=== PATIENT | female | born 1960 | race Caucasian/White ===

== ENCOUNTER 2016-06-24 08:06 | Day surgery (SDC) | payer OTHER ==
[~2016-06-24] VITALS: Ht 157.5 cm; Wt 79.7 kg
[2016-06-24 09:17] VITALS: Ht 157.5 cm; Wt 79.7 kg
[2016-06-24] MEDS ORDERED: SUCR1TAB56 PO (09:20)
[2016-06-24] MEDS ORDERED: MISO200T3 PO (09:21)
[2016-06-24] MEDS ORDERED: PRAV20TA63 PO (09:26)
[2016-06-24] MEDS ORDERED: GABA100C14 PO (09:26)
[2016-06-24] MEDS ORDERED: METH750T2 PO (09:26)
[2016-06-24] MEDS ORDERED: MELO-109 PO (09:26)
[2016-06-24] MEDS ORDERED: DULO20CA17 PO (09:26)
[2016-06-24] MEDS ORDERED: ALBU18HF INHALATION (09:26)
[2016-06-24] MEDS ORDERED: LIDOCAINE 2% (SDV) 5 ML INJ ONE (10:00)
[2016-06-24] MEDS ORDERED: LIDOCAINE 4% SOLUTION 50 ML BTL ONE (10:01)
[2016-06-24 11:05] VITALS: BP 119/87; PULSE 59; RESP 18
[2016-06-24] MEDS ORDERED: FENTAnyl 50 MCG/ML VIAL ONE ×2 (11:10)
[2016-06-24] MEDS ORDERED: MIDAZOLAM 1 MG/ML 2 ML INJ ONE ×3 (11:11)
[2016-06-24 11:18] VITALS: BP 126/68; PULSE 62; RESP 18
--- NOTE | 2016-06-25 05:11 | GILP ---
DATE OF PROCEDURE: 06/24/2016 PROCEDURE: Colonoscopy. PREOPERATIVE DIAGNOSIS: Patient presenting with history of no significant gastrointestinal problems . This is a screening colonoscopy to rule out colon polyps. POSTOPERATIVE DIAGNOSES: 1. A 4 mm polyp noted in the proximal transverse colon removed with a cold biopsy forceps. 2. A 1 cm submucosal mass noted in the proximal ascending colon consistent with a lipoma. Biopsy w as done. DESCRIPTION OF PROCEDURE: After the informed written consent was obtained, the patient was asked to lie on the left lateral side. A total of 6 mg Versed and 125 mcg of fentanyl was given as intraveno us anesthesia. When the patient became somnolent, the Olympus video colonoscope was introduced into the rectum and scope was advanced all the way to the cecum. There is evidence of a 4 mm flat polyp noted in the pr oximal transverse colon. This was removed with help of a cold biopsy forceps. There was about 1 cm submucosal mass noted in the proximal ascending colon. This is consistent with a lipoma. Biopsy w as done. The rest of the colon was examined thoroughly. Occasional diverticula were noted scattere d along the colon. They were small in size and not bleeding. On the way out, retroflexion was performed. Minimal internal hemorrhoids were noted and the rest of the colon as I mentioned earlier, did not show any additional abnormalities and at this time, proc edure was terminated. PLAN: Recommend wait for the pathology report. Repeat colonoscopy in 5 years. Dictated By: PATI LOZANO/DUNIA Conf#: [id number] DID#: [id number] CC: Yamileth Ma;*End*
--- NOTE | 2016-06-25 13:26 | GILP ---
DATE OF PROCEDURE: 06/24/2016 PROCEDURE: Esophagogastroduodenoscopy. PREOPERATIVE DIAGNOSIS: Patient presenting with history of chronic abdominal pain unresponsive to r outine therapy. Rule out peptic ulcer disease, gastritis, gastroesophageal reflux disease. POSTOPERATIVE DIAGNOSES: 1. Diffuse moderate degree of gastritis. 2. Nodularity and thickening of the folds in the gastric fundus noted. Biopsies were done. DESCRIPTION OF PROCEDURE: After informed written consent was obtained, the patient was asked to lie on the left lateral side. Intravenous anesthesia was given, which included 3 mg Versed and 50 mcg of fentanyl. When the patient became somnolent, the Olympus video upper endoscope was introduced in to the oropharynx, then into the esophagus. Esophagus showed normal mucosal pattern with no ulcers, no neoplasm, no esophagitis. Scope at this time was advanced into the stomach. Stomach showed dif fuse erythema and friability and edema. Some of the folds in the gastric fundus showed evidence of nodularity and thickening. Multiple biopsies were obtained from the antrum and the lesser curvature to rule out H. pylori infection. Biopsies were also obtained from the gastric thickening of the th ickened folds. Duodenum was examined up to the end of the third portion, which appeared normal. En doscope at this time was withdrawn, and no additional abnormalities detected, and the procedure was terminated. PLAN: Recommend proton pump inhibitor therapy. Dictated By: PATI LOZANO/DUNIA Conf#: [id number] DID#: [id number] CC: PATI SINGLETARY MD;*EndCC*
== END 2016-06-24 12:05 | disposition home or self-care (01) ==
LOC: GIL 08:06
PROVIDERS: ATTEND Internal Medicine Gastroenterology
DX: Z12.11 Encounter for screening for malignant neoplasm of colon (principal); D12.2 Benign neoplasm of ascending colon; K29.30 Chronic superficial gastritis without bleeding; D12.3 Benign neoplasm of transverse colon
CPT/HCPCS: 43239; 45380; J2250; J3010; Z7610; 88305; 88312

== ENCOUNTER 2017-04-24 06:31 | Day surgery (SDC) | payer MEDICARE, OTHER ==
[~2017-04-24] VITALS: Ht 157.5 cm; Wt 78.1 kg
[2017-04-24] VITALS (13 sets, daily range): BP systolic 114–158; BP diastolic 56–100; PULSE 60–92; RESP 13–22; Ht 157.5 cm; Wt 78.1 kg
[~2017-04-24 06:31] MED LIST: ALBU18HF INHALATION; DULO20CA17 PO; GABA100C14 PO; MELO-216 PO; METH750T2 PO; MISO200T3 PO; PRAV20TA63 PO; SUCR1TAB56 PO
[2017-04-24] MEDS ORDERED: DIPHENHYDRAMINE 50 MG INJ IV PRN (07:00)
[2017-04-24] MEDS ORDERED: FENTAnyl 50 MCG/ML VIAL IV PRN ×2 (07:00)
[2017-04-24] MEDS ORDERED: MEPERIDINE 25 MG INJ IV PRN (07:00)
[2017-04-24] MEDS ORDERED: ATROPINE 1 MG/10 ML SYRINGE IV PRN (07:00)
[2017-04-24] MEDS ORDERED: HYDROmorphONE (0.2 MG/ML) 10ML SYG IV PRN ×3 (07:00)
[2017-04-24] MEDS ORDERED: EPHEDrine SULFATE 50 MG/5 ML SYG IV PRN (07:00)
[2017-04-24] MEDS ORDERED: MIDAZOLAM 1 MG/ML 2 ML INJ IV PRN (07:00)
[2017-04-24] MEDS ORDERED: hydrALAzine 20 MG INJ IV PRN (07:00)
[2017-04-24] MEDS ORDERED: OXYCODONE/ACETAMINOPHEN (5/325) TAB PO PRN ×2 (07:00)
[2017-04-24] MEDS ORDERED: morphine (1 MG/ML) 10ML SYRINGE IV PRN ×3 (07:00)
[2017-04-24] MEDS ORDERED: LABETALOL HCL 20MG INJ IV PRN (07:00)
[2017-04-24] MEDS ORDERED: ONDANSETRON 4 MG INJ IV PRN (07:00)
[2017-04-24] MEDS ORDERED: DEXAMETHASONE 4 MG/ML 1 ML INJ ONE (07:07)
[2017-04-24] MEDS ORDERED: LIDOCAINE 2% (SDV) 5 ML INJ ONE (07:07)
[2017-04-24] MEDS ORDERED: NEOSTIGMINE 3 MG/3 ML SYRINGE ONE (07:07)
[2017-04-24] MEDS ORDERED: FENTAnyl 50 MCG/ML VIAL ONE (07:07)
[2017-04-24] MEDS ORDERED: ROCURONIUM 50 MG INJ ONE (07:07)
[2017-04-24] MEDS ORDERED: MIDAZOLAM 1 MG/ML 2 ML INJ ONE (07:07)
[2017-04-24] MEDS ORDERED: PROPOFOL 20 ML ONE (07:07)
[2017-04-24] MEDS ORDERED: GLYCOPYRROLATE 0.4 MG INJ ONE (07:07)
[2017-04-24] MEDS ORDERED: ONDANSETRON 4 MG INJ ONE (07:08)
[2017-04-24] MEDS ORDERED: SUCCINYLCHOLINE CHLORIDE 100 MG/5 ML SYG IV ONE (07:14)
[2017-04-24] MEDS ORDERED: CALC-143 PO (08:09)
[2017-04-24] MEDS ORDERED: IOHEXOL 300MG/ML 30 ML BTL ONE (08:09)
[2017-04-24] MEDS ORDERED: LEVO50TA71 PO (08:10)
[2017-04-24] MEDS ORDERED: OMEP40CA6 PO (08:10)
[2017-04-24 08:36] LABS: BASOPHILS % 0.7 % (0.0-2.0); EOSINOPHILS # 0.1 10^3/ul (0.0-0.5); EOSINOPHILS % 1.5 % (0.0-7.0); HEMATOCRIT 41.5 % (37.0-47.0); HEMOGLOBIN 13.9 g/dl (12.0-16.0); LYMPHOCYTES # 1.8 10^3/ul (0.8-2.9); LYMPHOCYTES % 29.4 % (15.0-51.0); MEAN CORPUSCULAR HEMOGLOBIN 32.1 pg (29.0-33.0); MEAN CORPUSCULAR HGB CONC 33.5 g/dl (32.0-37.0); MEAN CORPUSCULAR VOLUME 95.8 fl (82.0-101.0); MEAN PLATELET VOLUME 10.9 fl (7.4-10.4); MONOCYTE # 0.4 10^3/ul (0.3-0.9); MONOCYTES % 6.9 % (0.0-11.0); NEUTROPHIL # 3.8 10^3/ul (1.6-7.5); NEUTROPHILS % 61.2 % (39.0-77.0); PLATELET COUNT 260 10^3/UL (140-415); RED BLOOD COUNT 4.33 10^6/ul (4.20-5.40); RED CELL DISTRIBUTION WIDTH 11.9 % (11.5-14.5); WHITE BLOOD COUNT 6.1 10^3/ul (4.8-10.8)
[2017-04-24 08:47] LABS: ALBUMIN 4.2 g/dl (3.3-4.9); ALBUMIN/GLOBULIN RATIO 1.23; BILIRUBIN,INDIRECT 0.5 mg/dl (0-1.1); BILIRUBIN,TOTAL 0.5 mg/dl (0.2-1.3); INR 0.92; PROTIME 12.4 Sec (12.2-14.2); TOTAL PROTEIN 7.6 g/dl (6.1-8.1)
[2017-04-24 08:48] LABS: PARTIAL THROMBOPLASTIN TIME 29.7 Sec (25.0-35.0)
[2017-04-24 08:59] LABS: CALCIUM 9.4 mg/dl (8.4-10.2); CREATININE 0.68 mg/dl (0.44-1.00); POTASSIUM 3.4 mmol/L (3.5-5.1)
--- NOTE | 2017-04-24 09:40 | OPR ---
Date/Time of Note Date/Time of Note DATE: 04/24/17 TIME: 09:34 Operative Report Procedure Date: Apr 24, 2017 Preoperative Diagnosis ruq pain abn lfts s/p cholecustectomy r/o cbd stones Postoperative Diagnosis dilated cbd normal leigh duct s/p cholecystectomy Operation/Procedure Performed ercp Surgeon see signature line Baseball Glove Stuffer none Anesthesia Type: general Anesthesiologist: RADHA ZIMMERMAN MD Estimated Blood Loss: none Transfusion none Specimen none Grafts/Implants none Tubes/Drains none Complications none Pt Condition Post Procedure: stable Indications cbd stones Procedure Description ercp performed under general anesthesia\ dilatedc cbd stone s/p cholecystectomy normal leigh duct PATI SINGLETARY MD Apr 24, 2017 09:40
--- NOTE | 2017-04-24 12:12 | RADRPT ---
PROCEDURE: Intraoperative imaging for ERCP with fluoroscopy. CLINICAL INDICATION: Right upper quadrant pain. Intraoperative. TECHNIQUE: 12 images of the right upper quadrant of the abdomen were obtained in the operating johnathan m with an image intensifier. No radiologist was in attendance. Fluoroscopy time is 127 seconds. COMPARISON: No prior study is available for comparison. FINDINGS: Images demonstrate the endoscope in position and contrast injected into the common bile duct. A ball oon sweep was made. Contrast was also injected into the pancreatic duct. There is no filling defect. IMPRESSION: 1. ERCP as described above. RPTAT: QQ .Codey Figueroa MD, Date Time Electronically viewed and signed by .Codey Figueroa MD, on 04/24/2017 12:12 .R/
--- NOTE | 2017-04-25 02:36 | GILP ---
DATE OF PROCEDURE: PROCEDURE: ERCP. PREOPERATIVE DIAGNOSIS: Patient presenting with history of right upper quadrant pain which is persi stent. The patient had a cholecystectomy. Patient had abnormal liver functions. Procedure is perf ormed at this time to rule out choledocholithiasis. POSTOPERATIVE DIAGNOSES: 1. Dilated common bile duct and status post cholecystectomy. 2. Normal pancreatic duct. DESCRIPTION OF PROCEDURE: After the informed written consent was obtained, the patient was intubate d by anesthesiologist, Dr. Hicks. When the patient was in prone position, Olympus video side-viewi ng duodenoscope was inserted into the oropharynx, then into the esophagus, subsequently into the sto mach and then into the duodenum. The ampulla was located in normal location with normal morphology. At this time, cannulation was first performed by using the Dreamtome. Common bile duct was dilate d and no filling defects were noted; however, at this time, balloon was inserted into the common hep atic duct, balloon sweeping was performed, no sludge, no stones were noted. Subsequently, by using the Dreamtome, the pancreatic duct was cannulated, injection was made and pancreatic duct appe ared normal. Endoscope at this time was withdrawn, no additional abnormalities detected and the pro cedure was terminated. PLAN: Recommend follow the patient closely and further workup to be continued. Dictated By: PATI LOZANO/DUNIA Conf#: [id number] DID#: [id number]
--- NOTE | 2017-04-25 21:45 | RADRPT ---
Vent Rate: 70 bpm RR Interval: 0 msec UT Interval: 142 msec QRS Duration: 96 msec QT Interval: 432 msec QTC Interval: 466 msec P-R-T [place]: 49 - 11 - 21 degrees Normal sinus rhythm Normal ECG Electronically Signed By: Frantz Conde [id number]
== END 2017-04-24 11:29 | disposition home or self-care (01) ==
LOC: SDS 06:31 → GIL 06:31
PROVIDERS: ATTEND Internal Medicine Gastroenterology
DX: R10.11 Right upper quadrant pain (principal); E03.9 Hypothyroidism, unspecified
CPT/HCPCS: 43260; 74330; 80053; 85025; 85610; 85730; 93005; J1100; J2250; J2405; J2710; J3010; Q9967

== ENCOUNTER 2018-12-10 07:55 | Observation (INO) | payer OTHER ==
[2018-12-07 16:06] VITALS: BMI 32.2
[~2018-12-10] VITALS: Ht 157.5 cm; Wt 78.1 kg
[2018-12-10] VITALS (16 sets, daily range): BP systolic 114–140; BP diastolic 57–74; PULSE 64–78; RESP 14–20; Ht 157.5 cm; Wt 78.1 kg
[~2018-12-10 07:55] MED LIST changes: +CALC-143 PO; -DULO20CA17 PO; -GABA100C14 PO; +LEVO50TA71 PO; -MELO-216 PO; -METH750T2 PO; +OMEP40CA6 PO; -PRAV20TA63 PO
[2018-12-10] MEDS ORDERED: PRAV40TA76 PO (09:07)
[2018-12-10] MEDS ORDERED: OXYB5TAB22 PO (09:08)
[2018-12-10] MEDS ORDERED: LEVO75TA65 PO (09:08)
[2018-12-10] MEDS ORDERED: SUCR1TAB56 PO (09:08)
[2018-12-10] MEDS ORDERED: OMEP40CA6 PO (09:09)
[2018-12-10] MEDS ORDERED: BACL10TA PO (09:09)
[2018-12-10] MEDS ORDERED: SULI200T3 PO (09:10)
[2018-12-10] MEDS ORDERED: DULO60CA59 PO (09:10)
[2018-12-10] MEDS ORDERED: CLINDAMYCIN 900 MG/D5W (PMX) 50 ML IVPB ONE (09:30)
[2018-12-10] MEDS ORDERED: SOD CHLORIDE 0.9% 1,000 ML IV ONE (09:30)
[2018-12-10] MEDS ORDERED: POLYMYXIN/BACITRACIN 1L IRRIG ONE (12:23)
[2018-12-10] MEDS ORDERED: BUPIVACAINE 0.25% (MPF) 30 ML INJ ONE (12:23)
--- NOTE | 2018-12-10 12:35 | PREAC ---
Date/Time of Note Date/Time of Note DATE: 12/10/18 TIME: 12:34 Anesthesia Eval and Record Evaluation Time Pre-Procedure Interview DATE: 12/10/18 TIME: 12:34 Age 58 Sex female NPO: 8 hrs Preoperative diagnosis ventral hernia Planned procedure ventral hernia repair Past Medical History Past Medical History: Includes Cardio: Dyslipidemia Endo: Hypothyroid Musculoskeletal: Other (fibromyalgia) Surgery & Anesthesia Issues No known issue Meds Anticoagulation: No Beta Jayshree within 24 hr: No Reason Beta Jayshree not given: Pt. not on B-Jayshree Reported Medications Sulindac* (Clinoril*) 200 Mg Tablet, 200 MG PO BID, TAB 12/10/18 Duloxetine Hcl* (Duloxetine Hcl*) 60 Mg Capsule.dr, 60 MG PO BID, #30 CAP 12/10/18 Baclofen* (Baclofen*) 10 Mg Tablet, 10 MG PO TID, TAB 12/10/18 Omeprazole* (Omeprazole*) 40 Mg Capsule.dr, 40 MG PO DAILY, #30 CAP 12/10/18 Sucralfate* (Carafate*) 1 Gm Tab, 1 GM PO AC MEALS AND BEDTIME, TAB 12/10/18 Levothyroxine Sodium* (Levoxyl*) 75 Mcg Tablet, 75 MCG PO BEFORE BREAKFAST, #30 TAB 12/10/18 Oxybutynin Chloride* (Ditropan* XL) 5 Mg Tabsr, 5 MG PO DAILY, TAB.SA 12/10/18 Pravastatin Sodium* (Pravastatin Sodium*) 40 Mg Tablet, 40 MG PO HS, TAB 12/10/18 Discontinued Reported Medications Omeprazole* (Omeprazole*) 40 Mg Capsule.dr, 40 MG PO DAILY, #30 CAP 04/24/17 Levothyroxine Sodium* (Levoxyl*) 50 Mcg Tablet, 50 MCG PO BEFORE BREAKFAST, #30 TAB 04/24/17 Calcium Citrate/Vitamin D (Citracal-Vitamin D 200 MG-250) 1 Each Tablet, 1 EACH PO BID, TAB 04/24/17 Albuterol Sulfate* (Ventolin HFA*) 18 Gm Hfa.aer.ad, 2 PUFF INHALATION Q4H, #1 INHALER 06/24/16 Misoprostol (Misoprostol) 200 Mcg Tablet, 200 MCG PO, TAB 06/24/16 Sucralfate* (Carafate*) 1 Gm Tab, 1 GM PO AC MEALS AND BEDTIME, TAB 06/24/16 Current Medications Sodium Chloride 1,000 ml @ 75 mls/hr [id number] ONCE IV Last administered on 12/10/18at 08:54; Admin Dose 75 MLS/HR; Start 12/10/18 at 09:30; Stop 12/10/18 at 22:49 Meds reviewed: Yes Allergies Coded Allergies: Penicillins (Verified Allergy, Mild, rash, 12/10/18) Allergies Reviewed: Yes Labs/Studies Labs Reviewed: Reviewed by anesthesiologist test: N/A Studies: ECG, CXR Pre-procedure Exam Last vitals Vital Signs Date Temp Pulse Resp B/P (MAP) Pulse Ox O2 O2 Flow FiO2 Time Delivery Rate 12/10/18 98.2 73 16 131/68 100 09:03 (89) Airway: Adequate mouth opening, Adequate thyromental dist Mallampati: Mallampati I Teeth: Normal Lung: Normal Heart: Normal ASA Physical Status ASA physical status: 2 Emergency: None Planned Anesthetic General/MAC: ETT Planned Pain Management Parenteral pain med Pre-operative Attestations Prior to commencing anesthesia and surgery, the patient was re-evaluated, there was verification of: *The patient's identity *The results of appropriate recent lab work and preoperative vital signs *The above evaluation not changing prior to induction *Anesthetic plan, risk benefits, alternative and complications discussed with patient/family; questions answered; patient/family understands, accepts and wishes to proceed. KRISTIE LYNN Dec 10, 2018 12:35
[2018-12-10] MEDS ORDERED: PROPOFOL 20 ML ONE (12:59)
[2018-12-10] MEDS ORDERED: ROCURONIUM 50 MG INJ ONE (12:59)
[2018-12-10] MEDS ORDERED: LIDOCAINE 2% (SDV) 5 ML INJ ONE (12:59)
[2018-12-10] MEDS ORDERED: ONDANSETRON 4 MG INJ ONE (13:25)
[2018-12-10] MEDS ORDERED: DEXAMETHASONE 4 MG/ML 5 ML INJ ONE (13:25)
[2018-12-10] MEDS ORDERED: SUGAMMADEX SODIUM 200 MG/2 ML VIAL IV ONE (13:37)
--- NOTE | 2018-12-10 13:45 | OPR ---
Date/Time of Note Date/Time of Note DATE: 12/10/18 TIME: 13:40 Operative Report Procedure Date: Dec 10, 2018 Preoperative Diagnosis incarcerated incisional hernia Postoperative Diagnosis same Operation/Procedure Performed 1. laparoscopic incarcerated incisional hernia repair cpt code 26514 2. implantation of 15 x 15 cm bard soft mesh cpt code 54023 3. therapetic injection of subcutaneous local anesthesia Surgeon see signature line Buyers' Agent none Anesthesia Type: general Estimated Blood Loss: 0 - 10 ml's Transfusion none Specimen none Grafts/Implants none Complications none Pt Condition Post Procedure: stable Indications This is a 58-year-old female with symptomatic incarcerated incisional hernia. She has had prior surgery with an incision. She required surgical repair of incisional incarcerated hernia. Risks alternatives benefits and personal were discussed the patient. Potential complications including but not limited to bleeding infection mesh infection mesh migration mesh erosion were discussed the patient. In addition the injury to surrounding tissues were discussed the patient. Patient expressed understanding consents to the operation. Procedure Description Patient is taken to the OR and prepped and draped in usual sterile fashion. Surgical timeout was performed. IV antibiotics given. Left upper quadrant 5 mm incision was made transversely with a 15 blade. Using a 5 mm optical trocar optical entry is performed. Pneumoperitoneum is status. Left flank 12 mm optical trochars placed under direct visualization. Left lower quadrant 5 mm optical trochars placed under direct visualization. Upon initial inspection incarcerated incisional hernia was identified. Using laparoscopic harmonic wendy lysis of adhesions was performed and the hernia was then reduced ma nually. The fascial edges were freshened and the defect was identified. The hernia defect was closed primarily using Endo Close and laparoscopic techniques with interrupted #1 Vicryl. After primary closure of the incisional hernia defect underlay mesh with Bard soft mesh was secured in place with secure strap with approximate 45 cm of coverage in all directions. Good hemostasis was ensured. All ports removed under direct visualization. Skin was closed and skin francisco. Therapeutic subcutaneous local anesthesia was injected at the incision site. Dry dressings were applied. Parth CULVER Dec 10, 2018 13:45
--- NOTE | 2018-12-10 13:51 | PAC ---
Date/Time of Note Date/Time of Note DATE: 12/10/18 TIME: 13:51 Post-Anesthesia Notes Post-Anesthesia Note Last documented vital signs Vital Signs Date Temp Pulse Resp B/P (MAP) Pulse Ox O2 O2 Flow FiO2 Time Delivery Rate 12/10/18 98.2 73 16 131/68 100 1351 (89) Activity: WNL Respiratory function: WNL Cardiovascular function: WNL Mental status: Baseline Pain reasonably controlled: Yes Hydration appropriate: Yes Nausea/Vomiting absent: Yes KRISTIE LYNN Dec 10, 2018 13:51
[2018-12-10] MEDS ORDERED: METOCLOPRAMIDE 10 MG INJ IV PRN (14:00)
[2018-12-10] MEDS ORDERED: hydrALAzine 20 MG INJ IV PRN (14:00)
[2018-12-10] MEDS ORDERED: HYDROmorphONE 1 MG/5 ML IV SYRINGE IV PRN ×3 (14:00)
[2018-12-10] MEDS ORDERED: OXYCODONE/ACETAMINOPHEN (5/325) TAB PO PRN ×2 (14:00)
[2018-12-10] MEDS ORDERED: LABETALOL HCL 20MG INJ IV PRN (14:00)
[2018-12-10] MEDS ORDERED: DIPHENHYDRAMINE 50 MG INJ IV PRN (14:00)
[2018-12-10] MEDS ORDERED: FENTAnyl 50 MCG/ML VIAL IV PRN ×3 (14:00)
[2018-12-10] MEDS ORDERED: ALBUTEROL 0.083% (NEB) 2.5 MG/3 ML AMP HHN PRN (14:00)
[2018-12-10] MEDS ORDERED: HYDROCODONE/APAP (5/325) TAB PO ONE (14:00)
[2018-12-10] MEDS ORDERED: MEPERIDINE 25 MG INJ IV PRN (14:00)
[2018-12-10] MEDS ORDERED: KETOROLAC 30 MG INJ IV PRN (14:00)
[2018-12-10] MEDS ORDERED: ONDANSETRON 4 MG INJ IV PRN (14:00)
[2018-12-10] MEDS ORDERED: ACETAMINOPHEN 325 MG TAB PO PRN (20:00)
[2018-12-10] MEDS: SOD CHLORIDE 0.45% 1,000 ML IV SCH (20:56)
[2018-12-10] MEDS: DULOXETINE 30 MG CAP DR PO SCH (20:56)
[2018-12-10] MEDS: ATORVASTATIN 10 MG TAB PO SCH (21:55)
[2018-12-10] MEDS: morphine 2 MG INJ IV PRN (21:59)
--- NOTE | 2018-12-10 22:44 | HP ---
DATE OF ADMISSION: 12/10/2018 CHIEF COMPLAINT AND HISTORY OF PRESENT ILLNESS: The patient is a 58-year-old female with history of hypothyroidism, hyperlipidemia, history of ventral hernia and history of open cholecystectomy. The p atient has chronic abdominal pain and was referred to Dr. Moore. The patient was diagnosed with incarc erated incisional hernia. The patient was brought into hospital and underwent laparoscopic incarcera yoli incisional hernia repair with mesh. The patient has significant postoperative pain and is being admitted for further evaluation and management. The patient denies history of headache, dizziness or syncope. No history of chest pain. No history of resting leg pain. No history of numbness or ting ling in any extremity. No history of focal weakness. No history of recent fever or chills. No hist ory of vomiting. REVIEW OF SYSTEMS: The rest of the systems were unremarkable. ALLERGIES: PENICILLIN. GYNECOLOGIC HISTORY: The patient is postmenopausal. FAMILY HISTORY: Father has hypertension. Mother is diabetic. SOCIAL HISTORY: No smoking, no alcohol. PAST SURGICAL HISTORY: The patient is status post cholecystectomy and hysterectomy. PHYSICAL EXAMINATION: GENERAL: Awake, alert. VITAL SIGNS: Temperature 97.9, pulse 72, respiration 18, blood pressure 137/63, O2 sat 92% to 100% o n room air. HEENT: No eye discharge or redness. Conjunctivae normal. Oropharynx clear. NECK: No mass. CHEST: Fairly clear. CARDIOVASCULAR: S1, S2 normal, no murmur. ABDOMEN: The patient is status post surgery. EXTREMITIES: No edema. NEUROLOGIC: The patient is awake, alert, fairly oriented with no gross focal deficit. LABORATORY DATA: Hemoglobin 13.9, WBC 6.2 and platelet 298. Calcium 9.8, creatinine 0.6, albumin 4. 4, ALT 38, AST 23, glucose 85, potassium 4.1 and sodium 141. PT, PTT within normal limits. IMPRESSION: 1. Incarcerated incisional hernia status post laparoscopic repair. 2. Hypothyroidism. 3. Dyslipidemia. PLAN: The patient admitted on medical floor. The patient started on clear liquid diet and will be s tarted on Tylenol, [place] and IV morphine for pain control. The patient also has history of chronic p ain syndrome for which apparently she is on Cymbalta, which will be continued. We will continue to m onitor. We will advance diet as tolerated. Plan of care discussed with the patient's family. Dictated By: HAJA LLOYD/DUNIA Conf#: [id number] DID#: [id number] CC: YANIRA MOORE MD;*EndCC*
[2018-12-11 02:05] VITALS: BP 102/59; PULSE 80; RESP 18
[2018-12-11] MEDS: SOD CHLORIDE 0.45% 1,000 ML IV SCH ×3 (03:34→15:51)
[2018-12-11] MEDS: LEVOTHYROXINE 75 MCG TAB PO SCH (06:13)
[2018-12-11] MEDS: PANTOPRAZOLE (EC) 40 MG TAB PO SCH (06:13)
[2018-12-11 07:21] VITALS: BP 91/44; PULSE 71; RESP 18
[2018-12-11] MEDS: OXYBUTYNIN (XL) 5 MG TAB PO SCH (08:03)
[2018-12-11] MEDS: HYDROCODONE/APAP (5/325) TAB PO PRN ×2 (08:03→17:06)
[2018-12-11] MEDS: DULOXETINE 30 MG CAP DR PO SCH ×2 (08:03→20:26)
--- NOTE | 2018-12-11 09:57 | PN ---
Date/Time of Note Date/Time of Note DATE: 12/11/18 TIME: 09:56 Assessment/Plan VTE Prophylaxis Risk score (from Nsg)>0 risk: 3 SCD applied (from Nsg): Yes Pharmacological prophylaxis: other Lines/Catheters IV Catheter Type (from Nrsg): Peripheral IV Assessment/Plan Assessment/Plan s/p lap ventral hernia repair with mesh dc home today Result Diagram: 12/11/18 0542 12/11/18 0542 Results 24hrs Laboratory Tests Test 12/11/18 05:42 White Blood Count 9.4 # Red Blood Count 4.03 L Hemoglobin 12.8 Hematocrit 37.7 Mean Corpuscular Volume 93.5 Mean Corpuscular Hemoglobin 31.8 Mean Corpuscular Hemoglobin Concent 34.0 Red Cell Distribution Width 11.9 Platelet Count 281 Mean Platelet Volume 10.4 Immature Granulocytes % 0.400 Neutrophils % 84.3 H Lymphocytes % 11.7 L Monocytes % 3.5 Eosinophils % 0.0 Basophils % 0.1 Nucleated Red Blood Cells % 0.0 Immature Granulocytes # 0.040 H Neutrophils # 7.9 H Lymphocytes # 1.1 Monocytes # 0.3 Eosinophils # 0.0 Basophils # 0.0 Nucleated Red Blood Cells # 0.0 Sodium Level 143 Potassium Level 3.8 Chloride Level 108 Carbon Dioxide Level 27 Anion Gap 8 Blood Urea Nitrogen 11 Creatinine 0.52 Est Glomerular Filtrat Rate mL/min > 60 Glucose Level 125 Calcium Level 8.6 Subjective 24 Hr Interval Summary Free Text/Dictation patient doing well, a little gaseous but no vomiting no nausea Exam/Review of Systems Exam Vitals Vital Signs Date Temp Pulse Resp B/P (MAP) Pulse Ox O2 O2 Flow FiO2 Time Delivery Rate 12/11/18 97.8 71 18 91/44 (60) 90 Room Air 07:21 Intake and Output 12/10/18 12/10/18 12/11/18 1515:00 23:00 07:00 IntakeIntake Total 600 ml 640 ml 2200 ml OutputOutput Total 10 ml 600 ml BalanceBalance 590 ml 40 ml 2200 ml Exam c/d/i Results Results 24hrs Laboratory Tests Test 12/11/18 05:42 White Blood Count 9.4 # Red Blood Count 4.03 L Hemoglobin 12.8 Hematocrit 37.7 Mean Corpuscular Volume 93.5 Mean Corpuscular Hemoglobin 31.8 Mean Corpuscular Hemoglobin Concent 34.0 Red Cell Distribution Width 11.9 Platelet Count 281 Mean Platelet Volume 10.4 Immature Granulocytes % 0.400 Neutrophils % 84.3 H Lymphocytes % 11.7 L Monocytes % 3.5 Eosinophils % 0.0 Basophils % 0.1 Nucleated Red Blood Cells % 0.0 Immature Granulocytes # 0.040 H Neutrophils # 7.9 H Lymphocytes # 1.1 Monocytes # 0.3 Eosinophils # 0.0 Basophils # 0.0 Nucleated Red Blood Cells # 0.0 Sodium Level 143 Potassium Level 3.8 Chloride Level 108 Carbon Dioxide Level 27 Anion Gap 8 Blood Urea Nitrogen 11 Creatinine 0.52 Est Glomerular Filtrat Rate mL/min > 60 Glucose Level 125 Calcium Level 8.6 Medications Medication Current Medications Sodium Chloride 1,000 ml @ 100 mls/hr Q10H IV Last administered on 12/11/18 03:34; Admin Dose 100 MLS/HR; Start 12/10/18 at 17:00 Morphine Sulfate (morphine) 2 mg Q2H PRN IV SEVERE PAIN LEVEL 7-10 Last administered on 12/10/18 21:59; Admin Dose 2 MG; Start 12/10/18 at 17:00 Duloxetine HCl (Cymbalta) 30 mg BID PO Last administered on 12/11/18 08:03; Admin Dose 30 MG; Start 12/10/18 at 21:00 Levothyroxine Sodium (Synthroid) 75 mcg BEFORE BREAKFAST PO Last administered on 12/11/18 06:13; Admin Dose 75 MCG; Start 12/11/18 at 07:00 Oxybutynin Chloride (Ditropan Xl) 5 mg DAILY PO Last administered on 12/11/18 08:03; Admin Dose 5 MG; Start 12/11/18 at 09:00 Pantoprazole (Protonix Tab) 40 mg DAILY@06 PO Last administered on 12/11/18 06:13; Admin Dose 40 MG; Start 12/11/18 at 06:00 Atorvastatin Calcium (Lipitor) 10 mg HS PO Last administered on 12/10/18at 21:55; Admin Dose 10 MG; Start 12/10/18 at 21:00 Acetaminophen (Tylenol Tab) 650 mg Q4H PRN PO MILD PAIN(1-3)OR ELEVATED TEMP; Start 12/10/18 at 20:00 Acetaminophen/ Hydrocodone Bitart ([place] (5/325)) 1 tab Q4H PRN PO MODERATE PAIN LEVEL 4-6 Last administered on 12/11/18at 08:03; Admin Dose 1 TAB; Start 12/10/18 at 20:00 Parth CULVER Dec 11, 2018 09:57
[2018-12-11 14:06] VITALS: BP 106/56; PULSE 70; RESP 16
[2018-12-11] MEDS: morphine 2 MG INJ IV PRN (15:50)
--- NOTE | 2018-12-11 16:30 | PN ---
Date/Time of Note Date/Time of Note DATE: 12/11/18 TIME: 16:29 Assessment/Plan VTE Prophylaxis Risk score (from Ns)>0 risk: 3 SCD applied (from Ns): Yes Pharmacological prophylaxis: NA/contraindicated Pharm contraindication: surgical contra Lines/Catheters IV Catheter Type (from Nrsg): Peripheral IV Central line still needed: Yes Assessment/Plan Hospital Course Patient complains of significant postoperative pain requiring IV morphine, complains of mild nausea. Assessment/Plan 1. Incarcerated incisional hernia status post laparoscopic repair. Continue [place] and morphine as needed for pain and Zofran as needed for nausea. 2. Hypothyroidism. Continue Synthroid. 3. Dyslipidemia. Continue Lipitor. Further recommendations based on clinical course. Plan of care discussed with Dr. Wright. Result Diagram: 12/11/18 0542 12/11/18 0542 Results 24hrs Laboratory Tests Test 12/11/18 05:42 White Blood Count 9.4 # Red Blood Count 4.03 L Hemoglobin 12.8 Hematocrit 37.7 Mean Corpuscular Volume 93.5 Mean Corpuscular Hemoglobin 31.8 Mean Corpuscular Hemoglobin Concent 34.0 Red Cell Distribution Width 11.9 Platelet Count 281 Mean Platelet Volume 10.4 Immature Granulocytes % 0.400 Neutrophils % 84.3 H Lymphocytes % 11.7 L Monocytes % 3.5 Eosinophils % 0.0 Basophils % 0.1 Nucleated Red Blood Cells % 0.0 Immature Granulocytes # 0.040 H Neutrophils # 7.9 H Lymphocytes # 1.1 Monocytes # 0.3 Eosinophils # 0.0 Basophils # 0.0 Nucleated Red Blood Cells # 0.0 Sodium Level 143 Potassium Level 3.8 Chloride Level 108 Carbon Dioxide Level 27 Anion Gap 8 Blood Urea Nitrogen 11 Creatinine 0.52 Est Glomerular Filtrat Rate mL/min > 60 Glucose Level 125 Calcium Level 8.6 Exam/Review of Systems Exam Vitals Vital Signs Date Temp Pulse Resp B/P (MAP) Pulse Ox O2 O2 Flow FiO2 Time Delivery Rate 12/11/18 98.2 70 16 106/56 92 Room Air 14:06 (73) Intake and Output 12/10/18 12/10/18 12/11/18 1515:00 23:00 07:00 IntakeIntake Total 600 ml 640 ml 2200 ml OutputOutput Total 10 ml 600 ml BalanceBalance 590 ml 40 ml 2200 ml Constitutional: alert, oriented Head: normocephalic Neck: supple Respiratory: clear to auscultation Cardiovascular: nl pulses Gastrointestinal: soft, tender, other (Status post laparoscopic hernia repair) Extremities: normal pulses Neurological: nl mental status Skin: nl turgor Results Results 24hrs Laboratory Tests Test 12/11/18 05:42 White Blood Count 9.4 # Red Blood Count 4.03 L Hemoglobin 12.8 Hematocrit 37.7 Mean Corpuscular Volume 93.5 Mean Corpuscular Hemoglobin 31.8 Mean Corpuscular Hemoglobin Concent 34.0 Red Cell Distribution Width 11.9 Platelet Count 281 Mean Platelet Volume 10.4 Immature Granulocytes % 0.400 Neutrophils % 84.3 H Lymphocytes % 11.7 L Monocytes % 3.5 Eosinophils % 0.0 Basophils % 0.1 Nucleated Red Blood Cells % 0.0 Immature Granulocytes # 0.040 H Neutrophils # 7.9 H Lymphocytes # 1.1 Monocytes # 0.3 Eosinophils # 0.0 Basophils # 0.0 Nucleated Red Blood Cells # 0.0 Sodium Level 143 Potassium Level 3.8 Chloride Level 108 Carbon Dioxide Level 27 Anion Gap 8 Blood Urea Nitrogen 11 Creatinine 0.52 Est Glomerular Filtrat Rate mL/min > 60 Glucose Level 125 Calcium Level 8.6 Medications Medication Current Medications Sodium Chloride 1,000 ml @ 100 mls/hr Q10H IV Last administered on 12/11/18at 15:51; Admin Dose 100 MLS/HR; Start 12/10/18 at 17:00 Morphine Sulfate (morphine) 2 mg Q2H PRN IV SEVERE PAIN LEVEL 7-10 Last administered on 12/11/18at 15:50; Admin Dose 2 MG; Start 12/10/18 at 17:00 Duloxetine HCl (Cymbalta) 30 mg BID PO Last administered on 12/11/18at 08:03; Ad min Dose 30 MG; Start 12/10/18 at 21:00 Levothyroxine Sodium (Synthroid) 75 mcg BEFORE BREAKFAST PO Last administered on 12/11/18at 06:13; Admin Dose 75 MCG; Start 12/11/18 at 07:00 Oxybutynin Chloride (Ditropan Xl) 5 mg DAILY PO Last administered on 12/11/18 08:03; Admin Dose 5 MG; Start 12/11/18 at 09:00 Pantoprazole (Protonix Tab) 40 mg DAILY@06 PO Last administered on 12/11/18at 06:13; Admin Dose 40 MG; Start 12/11/18 at 06:00 Atorvastatin Calcium (Lipitor) 10 mg HS PO Last administered on 12/10/18at 21:55; Admin Dose 10 MG; Start 12/10/18 at 21:00 Acetaminophen (Tylenol Tab) 650 mg Q4H PRN PO MILD PAIN(1-3)OR ELEVATED TEMP; Start 12/10/18 at 20:00 Acetaminophen/ Hydrocodone Bitart ([place] (5/325)) 1 tab Q4H PRN PO MODERATE PAIN LEVEL 4-6 Last administered on 12/11/18at 08:03; Admin Dose 1 TAB; Start 12/10/18 at 20:00 STEW FRIEDMAN Dec 11, 2018 16:30
[2018-12-11 20:08] VITALS: BP 140/67; PULSE 72; RESP 18
[2018-12-11] MEDS: ATORVASTATIN 10 MG TAB PO SCH (20:26)
[2018-12-11] MEDS: ONDANSETRON 4 MG INJ IV PRN (20:26)
[2018-12-12 02:00] VITALS: BP 153/73; PULSE 79; RESP 18
[2018-12-12] MEDS: SOD CHLORIDE 0.45% 1,000 ML IV SCH (02:40)
[2018-12-12] MEDS: LEVOTHYROXINE 75 MCG TAB PO SCH (06:11)
[2018-12-12] MEDS: PANTOPRAZOLE (EC) 40 MG TAB PO SCH (06:11)
[2018-12-12 07:47] VITALS: BP 108/53; PULSE 70; RESP 16
[2018-12-12] MEDS: DULOXETINE 30 MG CAP DR PO SCH (08:02)
[2018-12-12] MEDS: OXYBUTYNIN (XL) 5 MG TAB PO SCH (08:02)
[2018-12-12] MEDS: HYDROCODONE/APAP (5/325) TAB PO PRN (11:26)
--- NOTE | 2018-12-12 11:46 | PN ---
Date/Time of Note Date/Time of Note DATE: 12/12/18 TIME: 11:43 Assessment/Plan VTE Prophylaxis Risk score (from Ns)>0 risk: 4 SCD applied (from Ns): Yes Pharmacological prophylaxis: NA/contraindicated Pharm contraindication: surgical contra Lines/Catheters IV Catheter Type (from Nrsg): Peripheral IV Assessment/Plan Hospital Course Patient pain is better controlled did not use any medication overnight however complains of lower abdominal pain encouraged to take p.o. [place]. If patient's pain is adequately controlled patient can be discharged home later today. Plan of care discussed with patient and patient daughter at the bedside, all questions answered. Patient is encouraged to get out of bed and ambulate. Patient has prescription for [place] from Dr. Moore. Plan of care discussed with RN. Assessment/Plan 1. Incarcerated incisional hernia status post laparoscopic repair. Continue Athe[place] and morphine as needed for pain and Zofran as needed for nausea. 2. Hypothyroidism. Continue Synthroid. 3. Dyslipidemia. Continue Lipitor. Further recommendations based on clinical course. Plan of care discussed with Dr. Wright. Result Diagram: 12/12/1846 12/12/1846 Results 24hrs Laboratory Tests Test 12/12/18 05:46 White Blood Count 11.0 H Red Blood Count 3.87 L Hemoglobin 12.3 Hematocrit 36.3 L Mean Corpuscular Volume 93.8 Mean Corpuscular Hemoglobin 31.8 Mean Corpuscular Hemoglobin Concent 33.9 Red Cell Distribution Width 12.1 Platelet Count 229 Mean Platelet Volume 10.7 H Immature Granulocytes % 0.700 H Neutrophils % 80.2 H Lymphocytes % 14.3 L Monocytes % 4.4 Eosinophils % 0.1 Basophils % 0.3 Nucleated Red Blood Cells % 0.0 Immature Granulocytes # 0.080 H Neutrophils # 8.9 H Lymphocytes # 1.6 Monocytes # 0.5 Eosinophils # 0.0 Basophils # 0.0 Nucleated Red Blood Cells # 0.0 Sodium Level 142 Potassium Level 4.1 Chloride Level 108 Carbon Dioxide Level 28 Anion Gap 6 Blood Urea Nitrogen 11 Creatinine 0.61 Est Glomerular Filtrat Rate mL/min > 60 Glucose Level 119 Calcium Level 8.2 L Exam/Review of Systems Exam Vitals Vital Signs Date Temp Pulse Resp B/P (MAP) Pulse Ox O2 O2 Flow FiO2 Time Delivery Rate 12/12/18 98.4 70 16 108/53 92 07:47 (71) 12/11/18 Room Air 14:06 Intake and Output 12/11/18 12/11/18 12/12/18 1515:00 23:00 07:00 IntakeIntake Total 240 ml 1140 ml 2100 ml BalanceBalance 240 ml 1140 ml 2100 ml Exam Constitutional: alert, oriented Head: normocephalic Neck: supple Respiratory: clear to auscultation Cardiovascular: nl pulses Gastrointestinal: soft, tender, other (Status post laparoscopic hernia repair) Extremities: normal pulses Neurological: nl mental status Skin: nl turgor Results Results 24hrs Laboratory Tests Test 12/12/18 05:46 White Blood Count 11.0 H Red Blood Count 3.87 L Hemoglobin 12.3 Hematocrit 36.3 L Mean Corpuscular Volume 93.8 Mean Corpuscular Hemoglobin 31.8 Mean Corpuscular Hemoglobin Concent 33.9 Red Cell Distribution Width 12.1 Platelet Count 229 Mean Platelet Volume 10.7 H Immature Granulocytes % 0.700 H Neutrophils % 80.2 H Lymphocytes % 14.3 L Monocytes % 4.4 Eosinophils % 0.1 Basophils % 0.3 Nucleated Red Blood Cells % 0.0 Immature Granulocytes # 0.080 H Neutrophils # 8.9 H Lymphocytes # 1.6 Monocytes # 0.5 Eosinophils # 0.0 Basophils # 0.0 Nucleated Red Blood Cells # 0.0 Sodium Level 142 Potassium Level 4.1 Chloride Level 108 Carbon Dioxide Level 28 Anion Gap 6 Blood Urea Nitrogen 11 Creatinine 0.61 Est Glomerular Filtrat Rate mL/min > 60 Glucose Level 119 Calcium Level 8.2 L Medications Medication Current Medications Sodium Chloride 1,000 ml @ 100 mls/hr Q10H IV Last administered on 12/12/18at 02:40; Admin Dose 100 MLS/HR; Start 12/10/18 at 17:00 Morphine Sulfate (morphine) 2 mg Q2H PRN IV SEVERE PAIN LEVEL 7-10 Last administered on 12/11/18at 15:50; Admin Dose 2 MG; Start 12/10/18 at 17:00 Duloxetine HCl (Cymbalta) 30 mg BID PO Last administered on 12/12/18at 08:02; Admin Dose 30 MG; Start 12/10/18 at 21:00 Levothyroxine Sodium (Synthroid) 75 mcg BEFORE BREAKFAST PO Last administered on 12/12/18 06:11; Admin Dose 75 MCG; Start 12/11/18 at 07:00 Oxybutynin Chloride (Ditropan Xl) 5 mg DAILY PO Last administered on 12/12/18 08:02; Admin Dose 5 MG; Start 12/11/18 at 09:00 Pantoprazole (Protonix Tab) 40 mg DAILY@06 PO Last administered on 12/12/18 06:11; Admin Dose 40 MG; Start 12/11/18 at 06:00 Atorvastatin Calcium (Lipitor) 10 mg HS PO Last administered on 12/11/18 20:26; Admin Dose 10 MG; Start 12/10/18 at 21:00 Acetaminophen (Tylenol Tab) 650 mg Q4H PRN PO MILD PAIN(1-3)OR ELEVATED TEMP; Start 12/10/18 at 20:00 Ondansetron HCl (Zofran Inj) 4 mg Q4H PRN IV NAUSEA AND/OR VOMITING Last administered on 12/11/18 20:26; Admin Dose 4 MG; Start 12/11/18 at 20:30 Docusate Sodium (Colace) 100 mg BID PO ; Start 12/12/18 at 12:00 Polyethylene Glycol (Miralax) 17 gm DAILY GTB ; Start 12/12/18 at 12:00 Acetaminophen/ Hydrocodone Bitart (Athelstane (5/325)) 2 tab Q4H PRN PO MODERATE PAIN LEVEL 4-6; Start 12/12/18 at 12:00 STEW FRIEDMAN Dec 12, 2018 11:46
[2018-12-12] MEDS ORDERED: POLYETHYLENE GLYCOL 17 GM PACKET GTB SCH (12:00)
[2018-12-12] MEDS ORDERED: HYDROCODONE/APAP (5/325) TAB PO ONE (12:00)
[2018-12-12] MEDS ORDERED: HYDROCODONE/APAP (5/325) TAB PO PRN (12:00)
[2018-12-12] MEDS ORDERED: DOCUSATE SODIUM 100 MG CAP PO SCH (12:00)
[2018-12-12] MEDS: ONDANSETRON 4 MG INJ IV PRN (12:05)
[2018-12-12 14:01] VITALS: BP 112/55; PULSE 70; RESP 16
--- NOTE | 2018-12-12 16:45 | PN ---
DATE: 12/12/2018 Postop day #2 status post laparoscopic repair of incarcerated ventral hernia with implantation of und erlying mesh. SUBJECTIVE: Feels better, has been out of bed to walk around. She is tolerating diet. No nausea, n o vomiting. The pain is under control. OBJECTIVE: GENERAL: Awake, alert, oriented. VITAL SIGNS: Temperature maximum 98.4, heart rate 70, respirations 16, blood pressure 108/53, satura tion 92% on room air. HEART: Regular. LUNGS: Clear. ABDOMEN: Soft. Dressing is intact. Bowel sounds present. EXTREMITIES: Legs negative. LABORATORY DATA: Electrolytes is normal. Hematology: WBC 11,000 with 80% segmented, hemoglobin 12. 3, hematocrit 36.3. IMPRESSION AND PLAN: The patient is stable post laparoscopic repair of the ventral incisional hernia . The patient can be discharged home today with a prescription for pain medication. Advised not to lift up heavy objects more than 10 pounds and also to make appointment with Dr. Moore's office and see Dr. Moore for followup. Dictated By: RAFY EUBANKS MD PS/NTS Conf#: [id number] DID#: [id number] CC: YANIRA MOORE MD;*EndCC*
--- NOTE | 2018-12-12 18:18 | DS ---
Date/Time of Note Date/Time of Note DATE: 12/12/18 TIME: 18:16 Discharge Summary Admission/Discharge Info Admit Date/Time Dec 10, 2018 at 17:04 Discharge Date/Time Dec 12, 2018 at 16:59 Patient Condition: Stable Hx of Present Illness The patient is a 58-year-old female with history of hypothyroidism, hyperlipidemia, history of ventral hernia and history of open cholecystectomy. The patient has chronic abdominal pain and was referred to Dr. Moore. The patient was diagnosed with incarcerated incisional hernia. The patient was brought into hospital and underwent laparoscopic incarcerated incisional hernia repair with mesh. The patient has significant postoperative pain and is being admitted for further evaluation and management. The patient denies history of headache, dizziness or syncope. No history of chest pain. No history of resting leg pain. No history of numbness or tingling in any extremity. No history of focal weakness. No history of recent fever or chills. No history of vomiting. Hospital Course Patient d/lindsay home with prescription for [place] from Dr. Moore. Assessment/Plan 1. Incarcerated incisional hernia status post laparoscopic repair. Continue Cot[place] and morphine as needed for pain and Zofran as needed for nausea. 2. Hypothyroidism. Continue Synthroid. 3. Dyslipidemia. Continue Lipitor. Plan of care discussed with Dr. Wright. Home Meds Reported Medications Sulindac* (Clinoril*) 200 Mg Tablet, 200 MG PO BID, TAB 12/10/18 Duloxetine Hcl* (Duloxetine Hcl*) 60 Mg Capsule., 60 MG PO BID, #30 CAP 12/10/18 Baclofen* (Baclofen*) 10 Mg Tablet, 10 MG PO TID, TAB 12/10/18 Omeprazole* (Omeprazole*) 40 Mg Capsule.dr, 40 MG PO DAILY, #30 CAP 12/10/18 Sucralfate* (Carafate*) 1 Gm Tab, 1 GM PO AC MEALS AND BEDTIME, TAB 12/10/18 Levothyroxine Sodium* (Levoxyl*) 75 Mcg Tablet, 75 MCG PO BEFORE BREAKFAST, #30 TAB 12/10/18 Oxybutynin Chloride* (Ditropan* XL) 5 Mg Tabsr, 5 MG PO DAILY, TAB.SA 12/10/18 Pravastatin Sodium* (Pravastatin Sodium*) 40 Mg Tablet, 40 MG PO HS, TAB 12/10/18 Discontinued Reported Medications Omeprazole* (Omeprazole*) 40 Mg Capsule.dr, 40 MG PO DAILY, #30 CAP 04/24/17 Levothyroxine Sodium* (Levoxyl*) 50 Mcg Tablet, 50 MCG PO BEFORE BREAKFAST, #30 TAB 04/24/17 Calcium Citrate/Vitamin D (Citracal-Vitamin D 200 MG-250) 1 Each Tablet, 1 EACH PO BID, TAB 04/24/17 Albuterol Sulfate* (Ventolin HFA*) 18 Gm Hfa.aer.ad, 2 PUFF INHALATION Q4H, #1 INHALER 06/24/16 Misoprostol (Misoprostol) 200 Mcg Tablet, 200 MCG PO, TAB 06/24/16 Sucralfate* (Carafate*) 1 Gm Tab, 1 GM PO AC MEALS AND BEDTIME, TAB 06/24/16 Follow-up Plan Follow-up with Dr. Moore in 2 weeks. Primary Care Provider Not On Staff Doctor Time spent on discharge: > 30 minutes Pending Labs Laboratory Tests Test 12/12/18 05:46 White Blood Count 11.0 10^3/ul (4.8-10.8) Red Blood Count 3.87 10^6/ul (4.20-5.40) Hemoglobin 12.3 g/dl (12.0-16.0) Hematocrit 36.3 % (37.0-47.0) Mean Corpuscular Volume 93.8 fl (82.0-101.0) Mean Corpuscular Hemoglobin 31.8 pg (29.0-33.0) Mean Corpuscular Hemoglobin Concent 33.9 g/dl (32.0-37.0) Red Cell Distribution Width 12.1 % (11.5-14.5) Platelet Count 229 10^3/UL (140-415) Mean Platelet Volume 10.7 fl (7.4-10.4) Immature Granulocytes % 0.700 % (0.001-0.429) Neutrophils % 80.2 % (39.0-77.0) Lymphocytes % 14.3 % (15.0-51.0) Monocytes % 4.4 % (0.0-11.0) Eosinophils % 0.1 % (0.0-7.0) Basophils % 0.3 % (0.0-2.0) Nucleated Red Blood Cells % 0.0 /100WBC (0.0-0.0) Immature Granulocytes # 0.080 10^3/ul (0.0-0.031) Neutrophils # 8.9 10^3/ul (1.6-7.5) Lymphocytes # 1.6 10^3/ul (0.8-2.9) Monocytes # 0.5 10^3/ul (0.3-0.9) Eosinophils # 0.0 10^3/ul (0.0-0.5) Basophils # 0.0 10^3/ul (0.0-0.1) Nucleated Red Blood Cells # 0.0 10^3/ul (0.0-0.0) Sodium Level 142 mmol/L (135-144) Potassium Level 4.1 mmol/L (3.5-5.1) Chloride Level 108 mmol/L (97-110) Carbon Dioxide Level 28 mmol/L (21-31) Anion Gap 6 (5-13) Blood Urea Nitrogen 11 mg/dl (7-20) Creatinine 0.61 mg/dl (0.44-1.00) Est Glomerular Filtrat Rate mL/min > 60 mL/min (>60) Glucose Level 119 mg/dl (70-220) Calcium Level 8.2 mg/dl (8.4-10.2) STEW FRIEDMAN Dec 12, 2018 18:18
== END 2018-12-12 16:59 | disposition home or self-care (01) ==
LOC: SDS 07:55 → REC 17:04 → PP2 18:22
PROVIDERS: ADMIT Surgery; ATTEND Surgery
DX: K43.0 Incisional hernia with obstruction, without gangrene (principal); E03.9 Hypothyroidism, unspecified; E78.5 Hyperlipidemia, unspecified
CPT/HCPCS: 49655; 80048; 85025; G0378; J1100; J1885; J2270; J2405; J3010